=== PATIENT | male | born 1970 | race Caucasian/White ===

== ENCOUNTER 2019-04-18 12:10 | Observation (INO) | payer MEDICARE, BC ==
[~2019-04-18] VITALS: Ht 177.8 cm; Wt 78.2 kg
[~2019-04-18 12:10] MED LIST: ALBU18HF INHALATION; ALPR1TAB7 ORAL; AMLO-145 ORAL; ATOM60CA4 ORAL; CLON0.5T14 PO; DEXT10CA PO; LURA60TA ORAL; OLAN15TA7 ORAL; OMEP20CA17 PO; OXCA300T41 PO; PREG300C PO; SERT50TA6 ORAL; VALA500T ORAL; VENL150C94 ORAL
[2019-04-18 12:34] VITALS: Ht 177.8 cm; Wt 78.2 kg
[2019-04-18] MEDS ORDERED: SOD CHLORIDE 0.9% 1,000 ML IV STA (13:33)
[2019-04-18] MEDS ORDERED: LORAZEPAM 2 MG INJ IV ONE (14:00)
[2019-04-18] MEDS ORDERED: SOD CHLORIDE 0.9% 1,000 ML IV SCH (18:15)
[2019-04-18] MEDS ORDERED: ACETAMINOPHEN 325 MG TAB PO PRN ×2 (18:30→20:00)
[2019-04-18] MEDS ORDERED: ONDANSETRON 4 MG INJ IV PRN ×2 (18:30→20:00)
[2019-04-18] MEDS ORDERED: NACL 0.9% 3 ML SYG IV SCH (20:00)
[2019-04-18] MEDS ORDERED: ALBUTEROL 18 GM INHALER INH PRN (20:00)
[2019-04-18] MEDS: [UNRECOGNIZED DRUG - REMARK] XX SCH (21:00)
[2019-04-18] MEDS ORDERED: OLANZAPINE 5 MG TAB PO SCH (21:00)
[2019-04-18] MEDS: PREGABALIN 100 MG CAP PO SCH (22:30)
[2019-04-18] MEDS: OXCARBAZEPINE 300 MG TAB PO SCH (22:30)
[2019-04-19 00:03] VITALS: BP 129/83; PULSE 76; RESP 18
[2019-04-19 04:00] VITALS: BP 132/82; PULSE 87; RESP 18
[2019-04-19] MEDS ORDERED: PANTOPRAZOLE (EC) 40 MG TAB PO SCH (06:00)
[2019-04-19 07:58] VITALS: BP 108/77; PULSE 84; RESP 18
[2019-04-19] MEDS: OXCARBAZEPINE 300 MG TAB PO SCH (08:49)
[2019-04-19] MEDS: [UNRECOGNIZED DRUG - REMARK] XX SCH ×2 (08:50→12:37)
[2019-04-19] MEDS ORDERED: VENLAFAXINE (XR) 75 MG CAP PO SCH (09:00)
[2019-04-19] MEDS ORDERED: ADDERALL 10 MG PO SCH (09:00)
[2019-04-19] MEDS ORDERED: AMLODIPINE 5 MG TAB PO SCH (09:00)
[2019-04-19] MEDS ORDERED: valACYclovir 500 MG TAB PO SCH (09:00)
[2019-04-19] MEDS ORDERED: NON-FORMULARY/PATIENT OWN MED (Omeprazole* 20 MG) PO SCH (09:00)
[2019-04-19] MEDS ORDERED: SERTRALINE 50 MG TAB PO SCH (09:00)
[2019-04-19] MEDS ORDERED: ATOMOXETINE HCL 60 MG CAPSULE PO SCH (09:00)
[2019-04-19] MEDS: PREGABALIN 100 MG CAP PO SCH (09:06)
[2019-04-19 11:12] VITALS: BP 133/91; PULSE 81; RESP 18
[2019-04-19] MEDS ORDERED: LURASIDONE 40 MG TABLET PO SCH (21:00)
== END 2019-04-19 13:30 | disposition home or self-care (01) ==
LOC: E/R 12:10 → 6WM 18:16 → CANRESERV 21:02 → 6WM 21:30
PROVIDERS: ADMIT Internal Medicine; ATTEND Internal Medicine
DX: R55 Syncope and collapse (principal); M45.9 Ankylosing spondylitis of unspecified sites in spine; F31.9 Bipolar disorder, unspecified; G89.29 Other chronic pain; J45.909 Unspecified asthma, uncomplicated; I10 Essential (primary) hypertension; F17.210 Nicotine dependence, cigarettes, uncomplicated; K21.9 Gastro-esophageal reflux disease without esophagitis; M79.7 Fibromyalgia
CPT/HCPCS: 36415; 70450; 71045; 80048; 80053; 80061; 80307; 83036; 83735; 84100; 84443; 84484; 85025; 85610; 85730; 93005; 96374; 97161; 97166; 99285; G0378; J2060; J7030